=== PATIENT | male | born 1970 | race Hispanic/Latino ===

== ENCOUNTER → 2020-01-09 | Outpatient (CLI) | payer SELFPAY ==
[~2020-01-09] MED LIST: DIATRIZOATE MEGL/DIATRIZOA SOD 30 ML BTL PO ONE; IOPAMIDOL 370 MG/ML 200 ML INFUS..BTL INJ ONE; SODIUM CHLORIDE 0.9% 50ML 50 ML ONE
--- NOTE | 2020-01-09 13:34 | Diagnostic Imaging Report ---
CT of the abdomen and pelvis, with contrast. History: Abdominal pain. Comparison: None available. Technique: Multidetector CT scanning of the abdomen and pelvis was performed from the level of the lung bases to the inferior pubic rami after intravenous and oral administration of contrast. Coronal and sagittal multiplanar reformations were obtained. RADIATION DOSE: Total DLP: 399.60 mGy*cm Dose modulation, iterative reconstruction, and/or weight based adjustment of the mA/kV was utilized to reduce the radiation dose to as low as reasonably achievable. FINDINGS: There is mild right basilar atelectasis present. The imaged portion of the lungs are otherwise unremarkable. The visualized heart demonstrates no significant abnormalities. The liver is normal in size and attenuation without evidence for focal abnormality. The gallbladder is unremarkable. There is no biliary ductal dilatation. There is a small hiatal hernia present. The stomach is otherwise unremarkable. The spleen, pancreas, and bilateral adrenal glands are unremarkable. The kidneys are normal in size and location and enhance symmetrically. There is no evidence for hydronephrosis. No ureteral stone or dilatation is identified. The urinary bladder demonstrates no significant abnormalities. The abdominal aorta is normal course and caliber. The IVC is unremarkable. There is abnormal wall thickening and adjacent fat stranding about the sigmoid colon in the region of diverticula compatible with acute diverticulitis. There is no evidence for perforation or organized fluid collection to suggest abscess formation. Minimal wall thickening without adjacent inflammatory change noted about the cecum which may relate to incomplete distention/peristalsis. The remaining visualized loops of small large bowel demonstrate no evidence of obstruction or inflammation. There is no ascites or peritoneal free air. No abnormally enlarged lymph nodes are identified within the abdomen or pelvis. The osseous structures demonstrate no evidence for acute fracture or destructive process. The extraperitoneal soft tissues are unremarkable. IMPRESSION: CT findings compatible with acute diverticulitis involving the sigmoid colon. No evidence for perforation or abscess formation. Signed by: Dr. Wisam Lacy MD on 01/09/2020 1:30 PM
== END ==
LOC: CT 11:08
PROVIDERS: ATTEND Internal Medicine Gastroenterology
DX: R10.30 Lower abdominal pain, unspecified (principal)
CPT/HCPCS: 74177; Q9967